=== PATIENT | male | born 1940 | race Native Hawaiian/Other Pacific Islander ===

== ENCOUNTER 2020-09-23 17:40 | Emergency (ER) | payer OTHER ==
[~2020-09-23] VITALS: Ht 175.3 cm; Wt 97.1 kg
[2020-09-23 17:45] VITALS: TEMP 98
[2020-09-23] MEDS ORDERED: AMBIEN5 MG PO (18:02)
[2020-09-23] MEDS ORDERED: ACIPHEX20 MG PO (18:02)
[2020-09-23 19:20] VITALS: BP 180/82
== END 2020-09-23 19:20 | disposition home or self-care (01) ==
LOC: ED 17:40
DX: T63.461A Toxic effect of venom of wasps, accidental (unintentional), initial encounter (principal); R22.33 Localized swelling, mass and lump, upper limb, bilateral; R22.43 Localized swelling, mass and lump, lower limb, bilateral; Y92.89 Other specified places as the place of occurrence of the external cause
CPT/HCPCS: 96360; 96375; 99284; J1200; J2930